=== PATIENT | male | born 1930 | race Caucasian/White ===

== ENCOUNTER 2017-05-09 16:58 | Inpatient (IN) | payer MEDICARE ==
[~2017-05-09] VITALS: Ht 170.2 cm; Wt 91.8 kg
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
--- NOTE | ~2017-05-09 | ENPV ---
Vascular Lower Extremities DVT Study Procedure Demographics Patient Name JEAN CLAUDE ZARAGOZA Date of Study 05/13/2017 Patient Number [id number] Gender Male Date of 1930 Age 86 Visit Number [id number] Height Accession Number [id number] Weight Room Number G6203 BSA BMI Referring Interpreting Zackary Deelon MD Physician Physician Physician Ordering Physician Evelyn Moore MD Manager Qa Ophelia Valentin BS, RT Conclusions Summary No evidence of deep vein thrombosis or superficial thrombophlebitis in the lower extremities bilaterally . Difficult to evaluate left lower extremity calf veins due to patient movement. Procedure Type of Study: Veins:Lower Extremities DVT Study, Venous Duplex Lower Extremity Bilateral. Additional Indications:Immobility Patient Status:Routine. Study Location:Inpatient Portable. Technical Quality:Adequate visualization. Velocities are measured in cm/s ; Diameters are measured in cm Right Lower Extremities DVT Study Measurements Right 2D and Doppler Measurements + + + + +------+------+ + !Location !Visualized!Compressibility!Thrombosis!Signal!Reflux!Reflux ! ! ! ! ! ! ! !(sec) ! + + + + +------+------+ + !GSV Thigh !Yes !Yes !None !Phasic!No ! ! + + + + +------+------+ + !Common !Yes !Yes !None !Phasic!No ! ! !Femoral ! ! ! ! ! ! ! + + + + +------+------+ + !Prox !Yes !Yes !None !Phasic!No ! ! !Femoral ! ! ! ! ! ! ! + + + + +------+------+ + !Mid Femoral!Yes !Yes !None !Phasic!No ! ! + + + + +------+------+ + !Dist !Yes !Yes !None !Phasic!No ! ! !Femoral ! ! ! ! ! ! ! + + + + +------+------+ + !Popliteal !Yes !Yes !None !Phasic!No ! ! + + + + +------+------+ + !Gastroc !Yes !Yes !None !Phasic!No ! ! + + + + +------+------+ + !PTV !Yes !Yes !None !Phasic!No ! ! + + + + +------+------+ + !Peroneal !Yes !Yes !None !Phasic!No ! ! + + + + +------+------+ + Left Lower Extremities DVT Study Measurements Left 2D and Doppler Measurements + + + + +------+------+ + !Location !Visualized!Compressibility!Thrombosis!Signal!Reflux!Reflux ! ! ! ! ! ! ! !(sec) ! + + + + +------+------+ + !GSV Thigh !Yes !Yes !None !Phasic!No ! ! + + + + +------+------+ + !Common !Yes !Yes !None !Phasic!No ! ! !Femoral ! ! ! ! ! ! ! + + + + +------+------+ + !Prox !Yes !Yes !None !Phasic!No ! ! !Femoral ! ! ! ! ! ! ! + + + + +------+------+ + !Mid Femoral!Yes !Yes !None !Phasic!No ! ! + + + + +------+------+ + !Dist !Yes !Yes !None !Phasic!No ! ! !Femoral ! ! ! ! ! ! ! + + + + +------+------+ + !Popliteal !Yes !Yes !None !Phasic!No ! ! + + + + +------+------+ + !Gastroc !Yes !Yes !None !Phasic!No ! ! + + + + +------+------+ + Signature dtt: JESSICA HARP dthector: 05/13/17 1338 Physician Self Edit
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
[2017-05-09 17:26] LABS: BASOPHIL % 0.2 %; EOSINOPHIL # 0.1 K/uL (0.0-0.5); EOSINOPHIL % 0.6 %; HEMATOCRIT 45.3 % (33.0-50.0); HEMOGLOBIN 15.2 g/dL (11.0-16.0); IMMATURE GRANULOCYTE # 0.1 K/uL (0.0-0.3); IMMATURE GRANULOCYTE % 0.5 %; LYMPHOCYTE # 1.4 K/uL (0.8-4.0); LYMPHOCYTE % 14.6 %; MCH 32.3 pg (27.0-34.0); MCHC 33.6 gm/dL (32.0-36.5); MCV 96.4 fl (83.0-98.0); MONOCYTE # 0.7 K/uL (0.0-1.0); MONOCYTE % 7.2 %; MPV 9.9 fl (9.4-12.4); NEUTROPHIL # (ANC) 7.2 K/uL (1.4-9.0); NEUTROPHIL % 76.9 %; NRBC % 0 /100WBC (0-0.00); PLATELET COUNT 183 K/uL (150-450); RDW-CV 13.1 % (11.9-14.6); WBC 9.3 K/uL (4.0-11.0)
[2017-05-09 17:27] LABS: PCO2 51 mmHg (35-45); PO2 39 mmHg (80-90)
[2017-05-09 17:28] LABS: BICARBONATE 27.7 mmol/L (18.0-23.0); POTASSIUM 4.1 mEq/L (3.7-5.1); SODIUM 143 mEq/L (135-145)
[2017-05-09 17:35] LABS: INR - (THERAPEUTIC) 1.03 (0.92-1.07); PROTIME 10.8 SECONDS (9.8-11.4); PTT 23 SECONDS (25-32)
[2017-05-09 17:48] LABS: ANION GAP 8.1 (10.0-19.0); BLOOD UREA NITROGEN 20 mg/dL (6-24); CHLORIDE 110 mMol/L (96-110)
[2017-05-09] MEDS ORDERED: ARICEPT10 MG PO (21:36)
[2017-05-10 04:17] LABS: BICARBONATE 23.5 mmol/L (18.0-23.0); PCO2 33 mmHg (35-45); PO2 68 mmHg (80-90)
[2017-05-10 05:05] LABS: BASOPHIL % 0.1 %; HEMOGLOBIN 14.3 g/dL (11.0-16.0); IMMATURE GRANULOCYTE % 0.4 %; LYMPHOCYTE # 0.9 K/uL (0.8-4.0); LYMPHOCYTE % 8.7 %; MCH 31.8 pg (27.0-34.0); MCV 93.5 fl (83.0-98.0); MONOCYTE # 0.9 K/uL (0.0-1.0); MONOCYTE % 8.7 %; MPV 9.7 fl (9.4-12.4); NEUTROPHIL # (ANC) 8.4 K/uL (1.4-9.0); NEUTROPHIL % 82.1 %; NRBC % 0 /100WBC (0-0.00); PLATELET COUNT 170 K/uL (150-450); RBC 4.49 M/uL (3.50-5.50); RDW-CV 14.6 % (11.9-14.6); WBC 10.2 K/uL (4.0-11.0)
[2017-05-10 05:18] LABS: ANION GAP 14.3 (10.0-19.0); CALCIUM 7.5 mg/dL (8.5-10.5); POTASSIUM 4.3 mMol/L (3.7-5.1)
[2017-05-11 04:42] LABS: BICARBONATE 25.5 mmol/L (18.0-23.0); PCO2 35 mmHg (35-45); PO2 79 mmHg (80-90)
[2017-05-11 04:55] LABS: ANION GAP 10.8 (10.0-19.0); CREATININE 0.7 mg/dL (0.6-1.3); POTASSIUM 3.8 mMol/L (3.7-5.1)
[2017-05-11 04:56] LABS: CALCIUM 7.2 mg/dL (8.5-10.5)
[2017-05-11 04:59] LABS: HEMATOCRIT 36.1 % (33.0-50.0); HEMOGLOBIN 12.3 g/dL (11.0-16.0); IMMATURE GRANULOCYTE % 0.5 %; LYMPHOCYTE # 0.6 K/uL (0.8-4.0); LYMPHOCYTE % 8.1 %; MCH 32.2 pg (27.0-34.0); MCHC 34.1 gm/dL (32.0-36.5); MCV 94.5 fl (83.0-98.0); MONOCYTE # 0.6 K/uL (0.0-1.0); MONOCYTE % 7.9 %; MPV 10.1 fl (9.4-12.4); NEUTROPHIL # (ANC) 6.6 K/uL (1.4-9.0); NEUTROPHIL % 83.5 %; NRBC % 0 /100WBC (0-0.00); PLATELET COUNT 144 K/uL (150-450); RBC 3.82 M/uL (3.50-5.50); RDW-CV 14.6 % (11.9-14.6); WBC 7.9 K/uL (4.0-11.0)
[2017-05-12 05:10] LABS: BICARBONATE 24.7 mmol/L (18.0-23.0); PCO2 31 mmHg (35-45); PO2 124 mmHg (80-90)
[2017-05-12 10:17] LABS: BASOPHIL % 0.2 %; EOSINOPHIL % 0.2 %; HEMATOCRIT 37.5 % (33.0-50.0); HEMOGLOBIN 12.3 g/dL (11.0-16.0); IMMATURE GRANULOCYTE % 0.5 %; LYMPHOCYTE # 0.8 K/uL (0.8-4.0); LYMPHOCYTE % 12.8 %; MCHC 32.8 gm/dL (32.0-36.5); MCV 94.5 fl (83.0-98.0); MONOCYTE # 0.5 K/uL (0.0-1.0); MONOCYTE % 7.4 %; MPV 8.9 fl (9.4-12.4); NEUTROPHIL # (ANC) 5.1 K/uL (1.4-9.0); NEUTROPHIL % 78.9 %; NRBC % 0 /100WBC (0-0.00); PLATELET COUNT 137 K/uL (150-450); RBC 3.97 M/uL (3.50-5.50); RDW-CV 14.2 % (11.9-14.6); WBC 6.5 K/uL (4.0-11.0)
[2017-05-12 10:37] LABS: ALBUMIN 2.5 gm/dL (3.5-5.0); ANION GAP 11.5 (10.0-19.0); CALCIUM 7.6 mg/dL (8.5-10.5); CREATININE 0.6 mg/dL (0.6-1.3); POTASSIUM 3.5 mMol/L (3.7-5.1); TOTAL BILIRUBIN 1.3 mg/dL (0.0-1.5); TOTAL PROTEIN 5.8 g/dL (6.0-8.4)
[2017-05-13 06:04] LABS: ALBUMIN 2.5 gm/dL (3.5-5.0); ANION GAP 10.4 (10.0-19.0); CALCIUM 7.7 mg/dL (8.5-10.5); CREATININE 0.8 mg/dL (0.6-1.3); POTASSIUM 3.4 mMol/L (3.7-5.1); TOTAL BILIRUBIN 2.6 mg/dL (0.0-1.5)
[2017-05-13 06:06] LABS: BASOPHIL % 0.2 %; EOSINOPHIL % 0.3 %; HEMATOCRIT 36.7 % (33.0-50.0); HEMOGLOBIN 12.5 g/dL (11.0-16.0); IMMATURE GRANULOCYTE % 0.5 %; LYMPHOCYTE # 0.7 K/uL (0.8-4.0); LYMPHOCYTE % 11.7 %; MCHC 34.1 gm/dL (32.0-36.5); MCV 93.9 fl (83.0-98.0); MONOCYTE # 0.6 K/uL (0.0-1.0); MONOCYTE % 9.5 %; MPV 10.3 fl (9.4-12.4); NEUTROPHIL # (ANC) 4.9 K/uL (1.4-9.0); NEUTROPHIL % 77.8 %; NRBC % 0 /100WBC (0-0.00); PLATELET COUNT 156 K/uL (150-450); RBC 3.91 M/uL (3.50-5.50); RDW-CV 13.7 % (11.9-14.6); WBC 6.3 K/uL (4.0-11.0)
[2017-05-14 05:18] LABS: BASOPHIL % 0.3 %; EOSINOPHIL # 0.1 K/uL (0.0-0.5); EOSINOPHIL % 1.2 %; HEMATOCRIT 39.7 % (33.0-50.0); IMMATURE GRANULOCYTE % 0.6 %; LYMPHOCYTE % 13.3 %; MCH 31.1 pg (27.0-34.0); MCHC 32.7 gm/dL (32.0-36.5); MONOCYTE # 0.7 K/uL (0.0-1.0); MONOCYTE % 9.2 %; MPV 9.5 fl (9.4-12.4); NEUTROPHIL # (ANC) 5.5 K/uL (1.4-9.0); NEUTROPHIL % 75.4 %; NRBC % 0 /100WBC (0-0.00); PLATELET COUNT 174 K/uL (150-450); RBC 4.18 M/uL (3.50-5.50); RDW-CV 13.6 % (11.9-14.6); WBC 7.3 K/uL (4.0-11.0)
[2017-05-14 05:47] LABS: ALBUMIN 2.6 gm/dL (3.5-5.0); ANION GAP 10.1 (10.0-19.0); CALCIUM 8.3 mg/dL (8.5-10.5); CREATININE 0.7 mg/dL (0.6-1.3); POTASSIUM 3.1 mMol/L (3.7-5.1); TOTAL PROTEIN 6.2 g/dL (6.0-8.4)
[2017-05-14 05:48] LABS: TOTAL BILIRUBIN 3.4 mg/dL (0.0-1.5)
[2017-05-14 23:28] LABS: PCO2 48 mmHg (35-45); PO2 108 mmHg (80-90)
[2017-05-14 23:29] LABS: BICARBONATE 30.4 mmol/L (18.0-23.0)
[2017-05-15 07:42] LABS: BASOPHIL % 0.3 %; EOSINOPHIL # 0.1 K/uL (0.0-0.5); EOSINOPHIL % 2.1 %; HEMATOCRIT 37.2 % (33.0-50.0); HEMOGLOBIN 12.3 g/dL (11.0-16.0); IMMATURE GRANULOCYTE % 0.5 %; LYMPHOCYTE # 0.7 K/uL (0.8-4.0); LYMPHOCYTE % 11.2 %; MCH 31.8 pg (27.0-34.0); MCHC 33.1 gm/dL (32.0-36.5); MCV 96.1 fl (83.0-98.0); MONOCYTE # 0.6 K/uL (0.0-1.0); MONOCYTE % 9.1 %; MPV 9.8 fl (9.4-12.4); NEUTROPHIL # (ANC) 4.8 K/uL (1.4-9.0); NEUTROPHIL % 76.8 %; NRBC % 0 /100WBC (0-0.00); PLATELET COUNT 195 K/uL (150-450); RBC 3.87 M/uL (3.50-5.50); RDW-CV 13.5 % (11.9-14.6); WBC 6.3 K/uL (4.0-11.0)
[2017-05-15 07:58] LABS: ALBUMIN 2.5 gm/dL (3.5-5.0); ALK PHOS 52 IU/L (33-138); ALT 52 IU/L (12-78); ANION GAP 8.9 (10.0-19.0); AST 63 IU/L (10-40); BLOOD UREA NITROGEN 23 mg/dL (6-24); CALCIUM 8.2 mg/dL (8.5-10.5); CHLORIDE 111 mMol/L (96-110); CO2 28 mMol/L (22-32); CREATININE 0.5 mg/dL (0.6-1.3); POTASSIUM 3.9 mMol/L (3.7-5.1); SODIUM 144 mMol/L (135-145); TOTAL PROTEIN 5.9 g/dL (6.0-8.4)
[2017-05-15 08:17] LABS: TOTAL BILIRUBIN 2.5 mg/dL (0.0-1.5)
[2017-05-16 06:19] LABS: HEMATOCRIT 39.2 % (33.0-50.0); HEMOGLOBIN 12.7 g/dL (11.0-16.0); MCH 31.1 pg (27.0-34.0); MCHC 32.4 gm/dL (32.0-36.5); MCV 96.1 fl (83.0-98.0); MPV 9.9 fl (9.4-12.4); PLATELET COUNT 226 K/uL (150-450); RBC 4.08 M/uL (3.50-5.50); RDW-CV 13.4 % (11.9-14.6); WBC 7.8 K/uL (4.0-11.0)
[2017-05-16 06:38] LABS: ALBUMIN 2.6 gm/dL (3.5-5.0); CALCIUM 8.6 mg/dL (8.5-10.5); CREATININE 0.6 mg/dL (0.6-1.3); TOTAL BILIRUBIN 2.3 mg/dL (0.0-1.5); TOTAL PROTEIN 6.2 g/dL (6.0-8.4)
[2017-05-16 07:10] LABS: ABSOLUTE NEUTROPHIL CT (ANC) 6.2 K/uL (1.4-9.0); BANDED NEUTROPHIL # 0.1 K/uL (0.0-0.1); BANDED NEUTROPHILS % 1 %; LYMPHOCYTE # 0.9 K/uL (0.8-4.0); LYMPHOCYTE % 11 %; MONOCYTE # 0.5 K/uL (0.0-1.0); SEGMENTED NEUTROPHIL # 6.1 K/uL (1.4-9.0); SEGMENTED NEUTROPHIL % 78 %
[2017-05-16 16:04] LABS: BILIRUBIN URINE NEGATIVE (NEGATIVE); BLOOD URINE 150 /UL (NEGATIVE); GLUCOSE URINE NEGATIVE (NEGATIVE); KETONE URINE 15 mg/dL (NEGATIVE); LEUKOCYTES URINE 25 /UL (NEGATIVE); NITRITE URINE NEGATIVE (NEGATIVE); PROTEIN URINE 15 mg/dL (NEGATIVE); TURBIDITY URINE CLEAR (CLEAR); UROBILINOGEN URINE 4 mg/dL (NORMAL)
[2017-05-16 16:05] LABS: COLOR URINE AMBER (YELLOW)
[2017-05-16 16:13] LABS: BACTERIA URINE NEGATIVE (NEGATIVE); EPITHELIAL URINE RARE #/HPF (NEGATIVE); WBC URINE 0-2 #/HPF (NEGATIVE)
[2017-05-17 06:18] LABS: BASOPHIL % 0.3 %; EOSINOPHIL # 0.1 K/uL (0.0-0.5); EOSINOPHIL % 1.7 %; HEMATOCRIT 40.4 % (33.0-50.0); HEMOGLOBIN 13.3 g/dL (11.0-16.0); IMMATURE GRANULOCYTE % 0.5 %; LYMPHOCYTE # 0.7 K/uL (0.8-4.0); LYMPHOCYTE % 11.3 %; MCH 31.8 pg (27.0-34.0); MCHC 32.9 gm/dL (32.0-36.5); MCV 96.7 fl (83.0-98.0); MONOCYTE # 0.7 K/uL (0.0-1.0); MONOCYTE % 10.5 %; MPV 9.6 fl (9.4-12.4); NEUTROPHIL # (ANC) 4.8 K/uL (1.4-9.0); NEUTROPHIL % 75.7 %; NRBC % 0 /100WBC (0-0.00); PLATELET COUNT 233 K/uL (150-450); RBC 4.18 M/uL (3.50-5.50); RDW-CV 13.3 % (11.9-14.6); WBC 6.4 K/uL (4.0-11.0)
[2017-05-17 06:49] LABS: ALBUMIN 2.6 gm/dL (3.5-5.0); ANION GAP 8.8 (10.0-19.0); CALCIUM 8.8 mg/dL (8.5-10.5); CREATININE 0.6 mg/dL (0.6-1.3); POTASSIUM 3.8 mMol/L (3.7-5.1); TOTAL BILIRUBIN 2.1 mg/dL (0.0-1.5); TOTAL PROTEIN 6.2 g/dL (6.0-8.4)
[2017-05-18 06:15] LABS: BASOPHIL % 0.4 %; EOSINOPHIL # 0.1 K/uL (0.0-0.5); EOSINOPHIL % 1.8 %; HEMATOCRIT 39.1 % (33.0-50.0); IMMATURE GRANULOCYTE % 0.5 %; LYMPHOCYTE # 0.9 K/uL (0.8-4.0); LYMPHOCYTE % 10.6 %; MCH 32.4 pg (27.0-34.0); MCHC 33.2 gm/dL (32.0-36.5); MCV 97.5 fl (83.0-98.0); MONOCYTE # 0.8 K/uL (0.0-1.0); MONOCYTE % 10.3 %; MPV 9.8 fl (9.4-12.4); NEUTROPHIL # (ANC) 6.1 K/uL (1.4-9.0); NEUTROPHIL % 76.4 %; NRBC % 0 /100WBC (0-0.00); PLATELET COUNT 252 K/uL (150-450); RBC 4.01 M/uL (3.50-5.50); RDW-CV 13.4 % (11.9-14.6)
[2017-05-18 06:36] LABS: ALBUMIN 2.6 gm/dL (3.5-5.0); ANION GAP 9.1 (10.0-19.0); CALCIUM 8.4 mg/dL (8.5-10.5); CREATININE 0.7 mg/dL (0.6-1.3); POTASSIUM 4.1 mMol/L (3.7-5.1); TOTAL BILIRUBIN 1.9 mg/dL (0.0-1.5); TOTAL PROTEIN 6.2 g/dL (6.0-8.4)
[2017-05-19 05:57] LABS: BASOPHIL % 0.2 %; EOSINOPHIL # 0.1 K/uL (0.0-0.5); EOSINOPHIL % 1.2 %; HEMATOCRIT 39.4 % (33.0-50.0); HEMOGLOBIN 12.5 g/dL (11.0-16.0); IMMATURE GRANULOCYTE % 0.5 %; MCH 31.3 pg (27.0-34.0); MCHC 31.7 gm/dL (32.0-36.5); MCV 98.5 fl (83.0-98.0); MONOCYTE # 0.8 K/uL (0.0-1.0); MONOCYTE % 9.1 %; NEUTROPHIL # (ANC) 6.5 K/uL (1.4-9.0); NRBC % 0 /100WBC (0-0.00); PLATELET COUNT 254 K/uL (150-450); RDW-CV 13.4 % (11.9-14.6); WBC 8.5 K/uL (4.0-11.0)
[2017-05-19 06:10] LABS: ALBUMIN 2.5 gm/dL (3.5-5.0); CALCIUM 8.4 mg/dL (8.5-10.5); CREATININE 0.9 mg/dL (0.6-1.3); POTASSIUM 4.1 mMol/L (3.7-5.1); TOTAL PROTEIN 6.3 g/dL (6.0-8.4)
[2017-05-19 06:14] LABS: ANION GAP 9.1 (10.0-19.0); TOTAL BILIRUBIN 2.3 mg/dL (0.0-1.5)
[2017-05-20 06:07] LABS: BASOPHIL % 0.1 %; EOSINOPHIL # 0.1 K/uL (0.0-0.5); EOSINOPHIL % 0.8 %; HEMATOCRIT 38.1 % (33.0-50.0); HEMOGLOBIN 12.3 g/dL (11.0-16.0); IMMATURE GRANULOCYTE % 0.5 %; LYMPHOCYTE # 0.7 K/uL (0.8-4.0); LYMPHOCYTE % 8.6 %; MCH 31.9 pg (27.0-34.0); MCHC 32.3 gm/dL (32.0-36.5); MCV 98.7 fl (83.0-98.0); MONOCYTE # 0.6 K/uL (0.0-1.0); MONOCYTE % 8.2 %; MPV 9.7 fl (9.4-12.4); NEUTROPHIL # (ANC) 6.3 K/uL (1.4-9.0); NEUTROPHIL % 81.8 %; NRBC % 0 /100WBC (0-0.00); PLATELET COUNT 253 K/uL (150-450); RBC 3.86 M/uL (3.50-5.50); RDW-CV 13.5 % (11.9-14.6); WBC 7.7 K/uL (4.0-11.0)
[2017-05-20 06:24] LABS: ALBUMIN 2.4 gm/dL (3.5-5.0); ANION GAP 7.8 (10.0-19.0); CALCIUM 8.2 mg/dL (8.5-10.5); CREATININE 0.9 mg/dL (0.6-1.3); POTASSIUM 3.8 mMol/L (3.7-5.1); TOTAL BILIRUBIN 2.5 mg/dL (0.0-1.5); TOTAL PROTEIN 6.1 g/dL (6.0-8.4)
[2017-05-21 06:38] LABS: BASOPHIL % 0.1 %; EOSINOPHIL # 0.1 K/uL (0.0-0.5); EOSINOPHIL % 0.5 %; HEMATOCRIT 39.8 % (33.0-50.0); HEMOGLOBIN 12.6 g/dL (11.0-16.0); IMMATURE GRANULOCYTE % 0.4 %; LYMPHOCYTE # 0.8 K/uL (0.8-4.0); LYMPHOCYTE % 8.5 %; MCH 31.7 pg (27.0-34.0); MCHC 31.7 gm/dL (32.0-36.5); MCV 100.3 fl (83.0-98.0); MONOCYTE # 0.8 K/uL (0.0-1.0); MONOCYTE % 8.4 %; MPV 9.7 fl (9.4-12.4); NEUTROPHIL # (ANC) 7.7 K/uL (1.4-9.0); NEUTROPHIL % 82.1 %; NRBC % 0 /100WBC (0-0.00); PLATELET COUNT 284 K/uL (150-450); RBC 3.97 M/uL (3.50-5.50); RDW-CV 13.4 % (11.9-14.6); WBC 9.4 K/uL (4.0-11.0)
[2017-05-21 06:53] LABS: ALBUMIN 2.4 gm/dL (3.5-5.0); ANION GAP 9.8 (10.0-19.0); CALCIUM 8.2 mg/dL (8.5-10.5); CREATININE 1.1 mg/dL (0.6-1.3); POTASSIUM 3.8 mMol/L (3.7-5.1); TOTAL BILIRUBIN 2.3 mg/dL (0.0-1.5); TOTAL PROTEIN 6.5 g/dL (6.0-8.4)
[2017-05-21 09:08] LABS: BICARBONATE 31.1 mmol/L (18.0-23.0); PCO2 48 mmHg (35-45)
[2017-05-21 09:09] LABS: PO2 57 mmHg (80-90)
[2017-05-22 05:44] LABS: BASOPHIL % 0.1 %; EOSINOPHIL % 0.3 %; HEMATOCRIT 37.5 % (33.0-50.0); HEMOGLOBIN 12.1 g/dL (11.0-16.0); IMMATURE GRANULOCYTE # 0.1 K/uL (0.0-0.3); IMMATURE GRANULOCYTE % 0.6 %; LYMPHOCYTE # 0.6 K/uL (0.8-4.0); LYMPHOCYTE % 6.7 %; MCHC 32.3 gm/dL (32.0-36.5); MCV 99.2 fl (83.0-98.0); MONOCYTE # 0.7 K/uL (0.0-1.0); MONOCYTE % 7.6 %; MPV 10.3 fl (9.4-12.4); NEUTROPHIL # (ANC) 7.4 K/uL (1.4-9.0); NEUTROPHIL % 84.7 %; NRBC % 0 /100WBC (0-0.00); PLATELET COUNT 302 K/uL (150-450); RBC 3.78 M/uL (3.50-5.50); RDW-CV 13.3 % (11.9-14.6); WBC 8.7 K/uL (4.0-11.0)
[2017-05-22 05:57] LABS: ALBUMIN 2.3 gm/dL (3.5-5.0); ANION GAP 9.7 (10.0-19.0); CALCIUM 8.4 mg/dL (8.5-10.5); CREATININE 1.1 mg/dL (0.6-1.3); POTASSIUM 3.7 mMol/L (3.7-5.1); TOTAL BILIRUBIN 2.3 mg/dL (0.0-1.5); TOTAL PROTEIN 6.4 g/dL (6.0-8.4)
== END 2017-05-23 13:20 | DRG 28 ==
LOC: GACC 16:58 → GICU 18:23 → GMSU 05-22 21:44
PROVIDERS: Internal Medicine; Internal Medicine Critical Care Medicine; Internal Medicine Pulmonary Disease; Neurological Surgery; Surgery; ADMIT Internal Medicine
DX: I60.9 Nontraumatic subarachnoid hemorrhage, unspecified (principal); G93.40 Encephalopathy, unspecified; J69.0 Pneumonitis due to inhalation of food and vomit; J96.01 Acute respiratory failure with hypoxia; I47.2 Ventricular tachycardia; E87.0 Hyperosmolality and hypernatremia; S12.9XXA Fracture of neck, unspecified, initial encounter; S02.401A Maxillary fracture, unspecified side, initial encounter for closed fracture; S22.43XA Multiple fractures of ribs, bilateral, initial encounter for closed fracture; F03.91 Unspecified dementia, unspecified severity, with behavioral disturbance; S02.31XA Fracture of orbital floor, right side, initial encounter for closed fracture; S02.40EA Zygomatic fracture, right side, initial encounter for closed fracture; Z23 Encounter for immunization; R13.19 Other dysphagia; V89.2XXA Person injured in unspecified motor-vehicle accident, traffic, initial encounter; R60.0 Localized edema; S01.319A Laceration without foreign body of unspecified ear, initial encounter; S19.9XXA Unspecified injury of neck, initial encounter; Z66 Do not resuscitate; R41.89 Other symptoms and signs involving cognitive functions and awareness; I95.9 Hypotension, unspecified; Z51.5 Encounter for palliative care
CPT/HCPCS: C1713; C9113; G0480; J0690; J1030; J1100; J1630; J1940; J2001; J2060; J2250; J2270; J2543; J2704; J3010; J3480; J7030; J7040; J7050; J7060; P9016; Q9967

== ENCOUNTER → 2017-05-09 | Outpatient (CLI) | payer MEDICARE ==
[~2017-05-09] MED LIST: ARICEPT10 MG PO
== END | disposition disaster alternative care site (69) ==
LOC: GAIR 16:57
DX: S27.0XXA Traumatic pneumothorax, initial encounter (principal); G89.11 Acute pain due to trauma; R41.0 Disorientation, unspecified; V59.9XXA Occupant (driver) (passenger) of pick-up truck or van injured in unspecified traffic accident, initial encounter
CPT/HCPCS: A0422; A0431; A0436; J2250; J3010

== ENCOUNTER → 2017-05-23 | Outpatient (CLI) | payer MEDICARE | END | disposition disaster alternative care site (69) | LOC: GAMB 13:27 | DX: I63.9 Cerebral infarction, unspecified (principal); R41.82 Altered mental status, unspecified ==